=== PATIENT | male | born 1985 ===

== ENCOUNTER 2018-03-19 12:52 | Emergency (ER) | payer OTHER ==
[2018-03-19 13:25] VITALS: BP 152/88
--- NOTE | 2018-03-19 14:10 | RAD ---
HISTORY: Left foot pain COMPARISONS: None VIEWS: 3, Frontal, lateral, and oblique views of the left foot FINDINGS: BONE DENSITY: Normal. BONES: There is no displaced fracture. JOINTS: There is no arthropathy. ALIGNMENT: There is no dislocation. SOFT TISSUES: Unremarkable. OTHER FINDINGS: None. IMPRESSION: NO ACUTE OSSEOUS INJURY. IF SYMPTOMS PERSIST, RECOMMEND REPEAT IMAGING.
--- NOTE | 2018-03-19 14:51 | UC ---
Lower Extremity/Ankle HPI - HPI Summary HPI Summary: patient is a 32-year-old male presenting to the with chief complaint of left inner foot pain radiating to the heel. Pain has been constant and throbbing, worse with ambulation since 1 week ago. He started a new job 4 weeks ago which he states he is on his feet 8 hours a day with outbreaks. He isn't steel toed boots. He has never had this pain before. There is also significant amount of swelling. Symptoms are worsened with inhalation, but remained with rest. He has not taken any ibuprofen or Tylenol for relief. He is attempted to elevate and ice without relief. - History of Current Complaint Chief Complaint: UCLowerExtremity Stated Complaint: FOOT PAIN Time Seen by Provider: 03/19/18 13:36 Hx Obtained From: Patient Onset/Duration: Sudden Onset Severity Initially: Mild Severity Currently: Mild Pain Intensity: 7 Pain Scale Used: 0-10 Numeric Aggravating Factor(s): Standing, Ambulation Alleviating Factor(s): Rest Able to Bear Weight: Yes - Risk Factors Gout Risk Factors: Negative DVT Risk Factors: Negative Septic Arthritis Risk Factor: Negative - Allergies/Home Medications Allergies/Adverse Reactions: Allergies Allergy/AdvReac Type Severity Reaction Status Date / Time sulfamethoxazole Allergy anaph Verified 03/19/18 13:26 [From Bactrim] trimethoprim [From Bactrim] Allergy anaph Verified 03/19/18 13:26 Home Medications: Home Medications Cetirizine* [ZyrTEC 10 MG TAB*] 40 mg PO DAILY 03/19/18 [History Confirmed 03/19] Lisinopril TAB* [Prinivil TAB 10 MG*] 10 mg PO DAILY 03/19/18 [History Confirmed 03/19/18] Metoprolol Tartrate TAB* [Lopressor TAB*] 25 mg PO DAILY 03/19/18 [History Confirmed 03/19/18] PMH/Surg Hx/FS Hx/Imm Hx Previously Healthy: Yes - Surgical History Surgical History: Yes Surgery Procedure, Year, and Place: tonsils/k wires left index finger - Family History Known Family History: Positive: Unknown - Social History Occupation: Employed Full-time Alcohol Use: None Substance Use Type: None Smoking Status (MU): Never Smoked Tobacco Review of Systems Constitutional: Negative Skin: Negative ENT: Negative Respiratory: Negative Motor: Negative Neurovascular: Negative Musculoskeletal: Arthralgia Neurological: Negative Is Patient Immunocompromised?: No All Other Systems Reviewed And Are Negative: Yes Physical Exam Triage Information Reviewed: Yes Appearance: Well-Appearing, Well-Nourished Vital Signs: Initial Vital Signs Temp 98.3 F 03/19/18 13:22 Pulse 97 03/19/18 13:22 Resp 16 03/19/18 13:22 BP 152/88 03/19/18 13:22 Pulse Ox 99 03/19/18 13:22 Vital Signs Reviewed: Yes Eye Exam: Normal Eyes: Positive: Conjunctiva Clear Neck exam: Normal Neck: Positive: No Lymphadenopathy Respiratory Exam: Normal Respiratory: Positive: Lungs clear Cardiovascular Exam: Normal Cardiovascular: Positive: RRR Musculoskeletal Exam: Normal Musculoskeletal: Positive: Strength Intact Psychological: Positive: Normal Response To Family Skin Exam: Normal Lower Extremity Course/Dx - Course Course Of Treatment: X-ray obtained which shows no acute osseous injury or other findings. I have suggested ice, elevation, ibuprofen 600mg 3 times daily and follow up to or throat. Unknown cause of the swelling, but likely due to emulating for 8 hours without correct arch support. I have advised he obtained good arch support for his boots, rest as much as possible. However, he may still need further workup. There is no bruising or redness to the area. Range of motion intact. No numbness or tingling. Denies any weakness. Pulses +2 intact bilaterally. There is no swelling to the lower extremity otherwise. - Differential Dx/Diagnosis Provider Diagnoses: Foot pain Discharge - Sign-Out/Discharge Documenting (check all that apply): Discharge/Admit/Transfer - Discharge Plan Condition: Stable Disposition: HOME Referrals: Jarrod Stewatr MD [Medical Doctor] - No Primary Care Phys,NOPCP [Primary Care Provider] - Additional Instructions: Please follow up with [facility] ibuprofen 600mg three times daily ESHA wrap = keep applied Ice and elevation as much as possible - Billing Disposition and Condition Condition: STABLE Disposition: HOME
== END 2018-03-19 14:43 | disposition home or self-care (01) ==
LOC: UCEAST 12:52
DX: M79.672 Pain in left foot (principal); Z88.1 Allergy status to other antibiotic agents
CPT/HCPCS: 99202; G0463